=== PATIENT | female | born 1970 | race African-American/Black ===

== ENCOUNTER 2019-04-23 17:44 | Emergency (ER) | payer SELFPAY ==
[~2019-04-23] VITALS: Ht 170.2 cm; Wt 82.0 kg
[2019-04-23] MEDS ORDERED: ACET-2178 PO (18:14)
[2019-04-23] MEDS ORDERED: D-ME236L5 PO (18:14)
[2019-04-23 19:47] LABS: BASOPHILS % 0.7 % (0.0-2.0); EOSINOPHILS % 2.6 % (0.0-5.0); HEMATOCRIT. 37.5 % (36.0-48.0); LYMPHOCYTES % 26.6 % (20.0-50.0); MEAN CORPUSCULAR HEMOGLOBIN 27.3 pg (28.0-32.0); MEAN CORPUSCULAR VOLUME 78.9 fL (81.0-99.0); MONOCYTES % 10.4 % (2.0-8.0); NEUTROPHILS % 59.7 % (40.0-76.0); PLATELET 208 x1000/uL (130-400); RED BLOOD CELL COUNT 4.75 mill/uL (4.2-5.4); RED CELL DISTRIBUTION WIDTH 14.2 % (11.6-14.6)
[2019-04-23 19:51] LABS: CHLORIDE 106 mEq/L (98-107)
[2019-04-23 20:00] LABS: HCG SCREEN NEGATIVE
[2019-04-23] MEDS ORDERED: METHYLPREDNISOLONE SOD SUCC 125 MG/2 ML VIAL IV ONE (20:45)
[2019-04-23] MEDS ORDERED: ALBUTEROL (0.083%) 2.5MG/3ML NEB HHN ONE (20:45)
[2019-04-23 21:57] VITALS: BP 127/91
== END 2019-04-23 21:58 | disposition home or self-care (01) ==
LOC: ER 17:44
DX: J06.9 Acute upper respiratory infection, unspecified (principal); J90 Pleural effusion, not elsewhere classified; Z98.890 Other specified postprocedural states; Z88.2 Allergy status to sulfonamides
CPT/HCPCS: 36415; 71046; 80053; 83880; 84703; 85025; 93005; 94640; 96374; 99284; J2930; J7611; Z7610

== ENCOUNTER 2019-05-12 15:36 | Emergency (ER) | payer SELFPAY ==
[~2019-05-12] VITALS: Ht 177.8 cm; Wt 72.0 kg
[~2019-05-12 15:36] MED LIST: ACET-2178 PO; D-ME236L5 PO
[2019-05-12 17:15] VITALS: BP 132/92
== END 2019-05-12 16:00 | disposition home or self-care (01) ==
LOC: ER 15:36
DX: R05 Cough (principal); Z98.890 Other specified postprocedural states; Z88.2 Allergy status to sulfonamides
CPT/HCPCS: 71045; 99283